=== PATIENT | male | born 1945 | race Caucasian/White ===

== ENCOUNTER 2021-07-19 10:03 | Day surgery (SDC) | payer MEDICARE ==
[2021-07-18 10:02] VITALS: BMI 26.4
[~2021-07-19 10:03] MED LIST: SODIUM CHLORIDE 0.9% 1,000 ML IV SCH
[2021-07-19] MEDS ORDERED: SODIUM CHLORIDE 0.9% 500 ML 500 ML IV ONE (10:20)
[2021-07-19 10:33] LABS: Glucose,Whole Blood 151 mg/dL (75-99)
[2021-07-19 10:35] VITALS: PULSE 60; RESP 16; TEMP 99
[2021-07-19] MEDS ORDERED: IOPAMIDOL-370 50ML BTL INJ ONE (10:44)
--- NOTE | 2021-07-19 12:20 | P.EPPROC ---
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 Persistent atrial fibrillation Right-sided single-chamber pacemaker, [employer] Procedures #1 cinefluoroscopy of the leads Cinefluoroscopy of the leads was performed. Screw-in lead implanted in the RV septum on the right side #2 right upper extremity venogram 10 mL IV dye injected in the right arm Patent right subclavian venous system Plan Proceed with upgrade to a Bi V pacemaker Implant atrial lead Possible plan for electrical cardioversion to sinus rhythm in the future
[2021-07-19 13:35] VITALS: BP 149/70
== END 2021-07-19 11:05 | disposition home or self-care (01) ==
LOC: CATHEP 10:03
PROVIDERS: ATTEND Internal Medicine Clinical Cardiac Electrophysiology
DX: I48.19 Other persistent atrial fibrillation (principal); Z20.822 Contact with and (suspected) exposure to COVID-19
CPT/HCPCS: 36005; 75822; 87635; Q9967

== ENCOUNTER 2021-08-28 06:42 | Day surgery (SDC) | payer MEDICARE ==
[2021-08-27 08:52] VITALS: BMI 26.4
[~2021-08-28 06:42] MED LIST changes: +LACTATED RINGERS 1,000 ML IV SCH; +LIDOCAINE 1% (10MG/ML) FOR IV START INTRADERMA PRN
[2021-08-28] MEDS ORDERED: ceFAZolin 1 GM in SODIUM CHLORIDE 0.9% IRRIG BTL 250 ML IRRIGATION PRN (07:00)
[2021-08-28] MEDS ORDERED: VANCOMYCIN 1,250 MG in SODIUM CHLORIDE 0.9% 250 ML IVPB SCH (07:00)
[2021-08-28 07:08] LABS: Glucose,Whole Blood 193 mg/dL (70-110)
[2021-08-28 07:13] LABS: Basophils # (A) 0.1 k/uL (0-0.2); Basophils % (A) 1 %; Eosinophils # (A) 0.1 k/uL (0-0.7); Eosinophils % (A) 1 %; HGB 14.8 gm/dL (13.0-17.5); Lymphocytes # (A) 4.2 k/uL (1.0-4.8); Lymphocytes % (A) 49 %; MCH 32.2 pg (25.0-35.0); MCV 97.7 fL (80.0-100.0); Mean Platelet Volume 8.3; Monocytes # (A) 0.5 k/uL (0-1.0); Monocytes % (A) 6 %; Neutrophils # (A) 3.5 k/uL (1.3-7.7); Neutrophils % (A) 41 %; Platelet Count 237 k/uL (150-450); RDW 12.9 % (11.5-15.5); WBC 8.6 k/uL (3.8-10.6)
[2021-08-28] MEDS ORDERED: SODIUM CHLORIDE 0.9% 1,000 ML IV ONE (07:17)
[2021-08-28] MEDS ORDERED: SODIUM CHLORIDE 0.9% 500 ML 500 ML IV ONE (07:17)
[2021-08-28 07:35] LABS: Potassium 4.4 mmol/L (3.5-5.1)
[2021-08-28] MEDS ORDERED: fentaNYL (PF) 50 MCG/ML 2 ML AMP ONE (11:17)
[2021-08-28] MEDS ORDERED: IV FLUID CONTINUATION 450 ML IV ONE (11:17)
[2021-08-28] MEDS ORDERED: HYDROmorphone (PF) 1 MG/ML ONE (11:17)
[2021-08-28] MEDS ORDERED: KETAMINE 10 MG/ML 20 ML VIAL ONE (11:17)
[2021-08-28] MEDS ORDERED: MIDAZOLAM 2 MG/2 ML VIAL ONE (11:17)
[2021-08-28] MEDS: IOPAMIDOL-370 50ML BTL INJ ONE ×2 (11:33→13:10)
[2021-08-28] MEDS ORDERED: LIDOCAINE 1% INJ 10MG/ML (30 ML VIAL-PF) SQ ONE (12:07)
[2021-08-28] MEDS ORDERED: ACETAMINOPHEN TAB 325 MG TAB PO PRN ×2 (14:40→14:52)
--- NOTE | 2021-08-28 15:00 | P.EPPROC ---
- EP Procedure Note Electrophysiology Procedure Note: Diagnosis Bradycardia, 100% RV pacing, underlying persistent atrial fibrillation, dilated atria Patient has a single chamber right-sided pacemaker lead Procedure Left bundle/ biventricular upgrade pacemaker implantation Details Patient was brought to the EP lab in a fasting state. Written informed consent was obtained prior to the procedure. Conscious sedation provided by anesthesia team IV antibiotics administered. Local anesthesia administered. A 4 cm incision made in the pectoral area. Subfascial pocket made. Venous access obtained Venous sheaths placed. Leads placed in the right heart. Right-sided implant LV lead positioned in the LV vein. The only available vein was the anteroseptal and anterior veins but the degree of tortuosity was so severe that only the wire couldn't be passed on, the lead would not negotiate the tortuosity CS access was difficult Left bundle pacing with an attempted with a see 315 sheath. This could not be achieved in stable position could not be achieved We switched to the standard His bundle sheath and the left bundle was successfully mapped Lead was screwed in position, [employer] 3830 Qr pattern noted Stim to V6 peak 88 ms Pacing impedance 1175 ohms unipolar Pacing threshold 0.75 V at 0.5 ms Leads secured. Old generator single-chamber removed New generator implanted [employer] biventricular pacemaker programmed per unipolar LV pacing with an LV RV offset of 70 ms VVIR 60 to 130 bpm Biventricular pacemaker device connected to the leads and placed in the subfascial pocket Patient tolerance the procedure well without acute complications
--- NOTE | 2021-08-28 15:05 | P.EPPROC ---
- EP Procedure Note Electrophysiology Procedure Note: This is a long procedure Access of the coronary sinus from the right side is very difficult However successfully able to ask coronary sinus The LV lead was placed in the CS However there were no veins available and along the lateral posterior lateral The anterior vein was available but there was significant tortuosity. While the wires could be placed on this pain, the lead could not negotiate the tortuosity He sought other veins but no other veins were visible Be used in in the sheath to explore for of the veins and none were found Subsequently be switched to left bundle pacing This is also difficult. The C315 sheath did not permit successful mapping of the left bundle The standard His bundle sheath progressed to the septal aspect of the left bundle The lead was successfully screwed in Qr pattern was obtained
[2021-08-28] MEDS ORDERED: ACETAMINOPHEN IV (For NPO) 1,000 MG in EMPTY BAG 1 BAG IVPB ONE (16:30)
[2021-08-28 16:54] LABS: Glucose,Whole Blood 203 mg/dL (70-110)
[2021-08-28 20:18] LABS: Glucose,Whole Blood 103 mg/dL (70-110)
[2021-08-28] MEDS: APIXABAN 5 MG TAB PO SCH (20:25)
[2021-08-28] MEDS: BISOPROLOL 5 MG TAB PO SCH (20:25)
[2021-08-29 06:22] LABS: Glucose,Whole Blood 153 mg/dL (70-110)
[2021-08-29] MEDS: GLIMEPIRIDE 2 MG TAB PO SCH ×2 (06:50→06:52)
--- NOTE | 2021-08-29 08:32 | XR ---
EXAMINATION TYPE: XR chest 1V portable DATE OF EXAM: 08/29/2021 COMPARISON: NONE HISTORY: Lead placement check TECHNIQUE: Single frontal view of the chest is obtained. FINDINGS: Right upper chest wall dual-lead pacemaker. The tips are apparently seen in the right ventricle, kind ly recheck their position. Grossly unremarkable lungs. No pleural effusion or pneumothorax. No gross cardiomegaly. Degenerative changes of the thoracic spine. IMPRESSION: As above.
[2021-08-29] MEDS ORDERED: Icosapent Ethyl [Vascepa] 0.5 GM Capsule PO SCH (09:00)
[2021-08-29] MEDS ORDERED: lisinopriL 10 MG TAB PO SCH (09:00)
[2021-08-29] MEDS ORDERED: DIGOXIN 125 MCG TAB PO SCH (09:00)
[2021-08-29] MEDS ORDERED: PRAVASTATIN SODIUM 40 MG TAB PO SCH (09:00)
[2021-08-29] MEDS: APIXABAN 5 MG TAB PO SCH (09:35)
[2021-08-29] MEDS: BISOPROLOL 5 MG TAB PO SCH (09:35)
[2021-08-29 11:15] VITALS: BP 134/72; PULSE 59; RESP 15; TEMP 98
--- NOTE | 2021-08-29 11:21 | P.DS ---
Providers Attending physician: Jarrett Montes De Oca Primary care physician: [facility] Course: Patient is doing well. Minimal discomfort in the surgical site on the right side, pacemaker area Minimal soakage No chest discomfort no dizziness lightheadedness Ambulating around the room and bathroom On examination Pulse rate 59, afebrile Blood pressure 134/72 mmHg Normal heart sounds Chest x-ray within normal limits Thresholds excellent on pacemaker interrogation Antibiotics complete Plan continue current medications Discharge home and follow-up with Dr. Barajas in the device clinic in a week Plan - Discharge Summary Discharge Rx Participant: No New Discharge Prescriptions: Continue Digoxin [Digitek] 125 mcg PO DAILY Apixaban [Eliquis] 5 mg PO BID icosapent ethyL [Vascepa] 1 gm PO DAILY Empagliflozin [Jardiance] 25 mg PO DAILY Bisoprolol Fumarate [Zebeta] 10 mg PO BID Adalimumab [Humira(Cf) Pen] 40 mg SQ Q14D metFORMIN HCL [Glucophage] 1,000 mg PO BID Pravastatin Sodium [Pravachol] 40 mg PO DAILY Glimepiride [Amaryl] 2 mg PO DAILY ramipriL [Ramipril] 2.5 mg PO DAILY Discharge Medication List Adalimumab [Humira(Cf) Pen] 40 mg SQ Q14D 07/18/21 [History] Apixaban [Eliquis] 5 mg PO BID 07/18/21 [History] Bisoprolol Fumarate [Zebeta] 10 mg PO BID 07/18/21 [History] Digoxin [Digitek] 125 mcg PO DAILY 07/18/21 [History] Empagliflozin [Jardiance] 25 mg PO DAILY 07/18/21 [History] Glimepiride [Amaryl] 2 mg PO DAILY 07/18/21 [History] Pravastatin Sodium [Pravachol] 40 mg PO DAILY 07/18/21 [History] icosapent ethyL [Vascepa] 1 gm PO DAILY 07/18/21 [History] metFORMIN HCL [Glucophage] 1,000 mg PO BID 07/18/21 [History] ramipriL [Ramipril] 2.5 mg PO DAILY 07/18/21 [History] Follow up Appointment(s)/Referral(s): Jarrett Montes De Oca MD [STAFF PHYSICIAN] - 1 Week (APPOINTMENT [facility] ON FRIDAY, August @ 10:00AM Follow the device clinic follow Dr. Barajas See Dr. Montes De Oca as needed) Mark Barajas MD [STAFF PHYSICIAN] - 1 Week Activity/Diet/Wound Care/Special Instructions: PATIENT EDUCATION MATERIAL Instructions following a heart rhythm device implant. 1. Keep dressing DRY for 5 DAYS. You may cover the area with Saran or Cling Wrap, prior to a shower. 2. The dressing will be removed in the Device Clinic at [facility]. Absorbable sutures were used to close the wound. 3. Avoid raising the left arm above the shoulder level. 4 week restriction 4. Avoid arm movements, like backscratching, rubbing the head, or pulling on a cord. 4 weeks restriction 5. Gentle range of motion movements of the shoulder, closest to the incision should be performed to avoid a frozen shoulder. (Pendulum exercises of the shoulder) 6. The opposite arm may be used freely. 7. Avoid driving for 7 days. 8. Avoid activities such as golfing, swimming, weed whacking, lifting more than 10 pounds weight, bowling, gymnastics and weight training/lifting. (6 weeks restriction) 9. Activities such as wood chopping with an axe, pull-ups in the gymnasium, power lifting, arc-welding, being close to home induction cooktops will always be a problem. 10. Arm sling is only a reminder not to raise the arm above the head. You do not need to keep the arm completely immobilized. Your free to move the arm and use it and for normal activities. In case of any problems, please call [facility], [facility], @ [phone], Attention: Device Clinic Device clinic follow-up in 5 days Follow-up with primary law firm receptionist in 2-3 months
[2021-08-30] MEDS ORDERED: metFORMIN 500 MG TAB PO SCH (17:30)
== END 2021-08-29 11:32 | disposition home or self-care (01) ==
LOC: CATHEP 06:42 → 3SCARD 14:30 → CATHEP 08-29 11:32
PROVIDERS: ATTEND Internal Medicine Clinical Cardiac Electrophysiology
DX: I48.19 Other persistent atrial fibrillation (principal); I34.0 Nonrheumatic mitral (valve) insufficiency; I50.9 Heart failure, unspecified; E78.5 Hyperlipidemia, unspecified; E11.9 Type 2 diabetes mellitus without complications; I42.9 Cardiomyopathy, unspecified; F17.290 Nicotine dependence, other tobacco product, uncomplicated; J44.9 Chronic obstructive pulmonary disease, unspecified; Z20.822 Contact with and (suspected) exposure to COVID-19; Z79.899 Other long term (current) drug therapy; Z79.01 Long term (current) use of anticoagulants; Z79.84 Long term (current) use of oral hypoglycemic drugs; Z79.4 Long term (current) use of insulin; Z97.2 Presence of dental prosthetic device (complete) (partial)
CPT/HCPCS: 33225; 33207; 33233; 80048; 85025; 87635; 71045; C1769 ×5; C1892; C1730; C1887; C1898; C2621; C1900; J2250; J3370; J0690 ×2; J2001; J3010; J1170; J0131; Q9967; 33208